=== PATIENT | male | born 1990 | race Hispanic/Latino ===

== ENCOUNTER 2018-09-11 12:08 | Emergency (ER) | payer OTHER ==
[~2018-09-11] VITALS: Ht 172.7 cm; Wt 89.5 kg
[2018-09-11] MEDS ORDERED: ALBUTEROL SULFATE 2.5 MG/0.5 ML INH NEB SOLN NEB ONE (12:45)
[2018-09-11 13:02] LABS: INFLUENZA A AMPLIFICATION POSITIVE (NEGATIVE); INFLUENZA B AMPLIFICATION NEGATIVE (NEGATIVE)
--- NOTE | 2018-09-11 13:16 | REP ---
Chest x-ray: Two views. History: Cough and congestion. . Comparison study: No comparison study . Findings: The lungs are well inflated and free of infiltrate. The pleural angles are sharp. The heart size is normal. Pulmonary vasculature is not increased. No significant bony abnormality is seen. Impression: Negative chest x-ray. Electronically Signed by Juice Suárez MD 09/11/2018 01:07 P
[2018-09-11] MEDS ORDERED: IPRATROPIUM 0.5MG/ALBUTEROL 2.5MG INH SOL UD 3ML (DUONEB)(J7620) NEB ONE (13:30)
[2018-09-11 13:36] VITALS: BP 123/73
== END 2018-09-11 13:47 | disposition home or self-care (01) ==
LOC: M ED 12:08
DX: J09.X2 Influenza due to identified novel influenza A virus with other respiratory manifestations (principal); Z20.828 Contact with and (suspected) exposure to other viral communicable diseases

== ENCOUNTER 2020-05-01 18:16 | Emergency (ER) | payer OTHER ==
[~2020-05-01] VITALS: Ht 172.7 cm; Wt 93.5 kg
[2020-05-01] MEDS ORDERED: ACET1TAB55 (18:22)
[2020-05-01] MEDS ORDERED: PSEU-52 (18:22)
[2020-05-01] MEDS ORDERED: BENZ-18 (18:22)
[2020-05-01] MEDS ORDERED: CETI-24 (18:22)
[2020-05-01 20:40] VITALS: BP 148/88
== END 2020-05-01 20:30 | disposition home or self-care (01) ==
LOC: M ED 18:16
DX: Z20.828 Contact with and (suspected) exposure to other viral communicable diseases (principal); J06.9 Acute upper respiratory infection, unspecified
CPT/HCPCS: 99283; U0003